=== PATIENT | male | born 1975 | race Caucasian/White ===

== ENCOUNTER → 2020-02-06 07:13 | Outpatient (CLI) | payer BC, SELFPAY ==
--- NOTE | ~2020-02-06 | MR_ITS ---
EXAMINATION: MR hip RT wo con DATE: 02/06/2020 08:09 INDICATION: Right hip pain. TECHNIQUE: Magnetic resonance imaging (MRI) of the right hip was performed without intravenous contra st. Sequences included axial and coronal PD-weighted FS FSE and axial T1-weighted FSE of the pelvis. Sequences of the hip included 2D FIESTA, T1-weighted fast GRE, and axial, coronal, and sagittal PD-we ighted FS FSE. COMPARISON: None FINDINGS: Bones/cartilage: Bone alignment is normal. No fracture. The femoral head/neck morphologies are normal. The hip joints demonstrate tiny marginal osteophytes. Small pract-yp-gnys images of right hip demonstrate shallow pa rtial-thickness cartilage loss posteriorly. Labrum: The right acetabular labrum is intact. Fluid: There is no hip joint effusion. There is mild bilateral trochanteric bursitis. Soft tissues: There is severe tendinopathy of the hamstring origins bilaterally. There is a small partial tear of l eft hamstring origin. The iliopsoas tendons are normal. There is mild right gluteus minimus and glute us medius tendinopathy. There is mild left gluteus minimus tendinopathy. IMPRESSION: 1. Mild osteoarthritis of the hips. Reviewed, dictated and finalized at location A. [facility] [employer]
== END ==
PROVIDERS: PCP Internal Medicine; Visit Provider Physician Assistant Medical
DX: M16.0 Bilateral primary osteoarthritis of hip (principal)
CPT/HCPCS: 73721